=== PATIENT | male | born 1975 | race Caucasian/White ===

== ENCOUNTER 2016-10-07 13:46 | Day surgery (SDC) | payer BC ==
[~2016-10-07] VITALS: Ht 171.4 cm; Wt 108.6 kg
[2016-10-07] VITALS (7 sets, daily range): BP systolic 122–141; BP diastolic 59–76; PULSE 64–82; RESP 16–19; TEMP 97.6–98; O2SAT 94–98; Ht 171.4 cm; Wt 108.6 kg
[~2016-10-07 13:46] MED LIST: ERTAPENEM 1 G in NORMAL SALINE 100 ML IV ONE; LR 1,000 ML IV PRN
--- NOTE | 2016-10-07 14:49 | ANESPREOP ---
Anesthesia Record Date and Time DATE: 10/07/16 TIME: 14:46 Pre-Op Diagnosis perianal abscess Proposed Surgical Procedure EXCISION OF JESICA ANAL MASS Allergies: Coded Allergies: No Known Drug Allergies (Verified Allergy, Unknown, 10/07/16) Ht/Wt/BMI Height: 5 ' 7.50 " Weight: 108.600 kg BMI: 36.9 kg/m2 Vital Signs Date Time Temp Pulse Resp B/P Pulse Ox O2 Delivery O2 Flow Rate FiO2 10/07/16 14:00 98.0 82 16 131/76 94 Room Air Medications Inpatient Medications Current Medications Medications (Trade) Dose Ordered Sig/Adela Start Time Stop Time Status Last Admin Dose Admin Lactated Ringer's (Lactated Ringers) 1,000 ml @ 50 mls/hr Q20H PRN 10/07/16 07:00 10/07/16 14:17 50 MLS/HR No Active Prescriptions or Reported Meds Currently on Beta Alondra: No Medical/Surgical History Anesthesia PMH: Denies: *Angina, *Diabetes, *Hypertension, *DE, Anesthesia Reactions (NO AIRWAY ISSUES), Arthritis, Asthma, CHF, COPD, CVA/Stroke/TIA, Cancer, Clotting Problems, Glaucoma, Hiatal Hernia, Malignant Hyperthermia, Pneumonia, Reflux, Renal Disease, Seizures, Sleep Apnea, Thyroid Disease, Tuberculosis Smoking Status: Never smoker Has pt. smoked today?: No Use Chewing Tobacco?: No Second Hand Exposure: No Substance Use Type: does not use Alcohol Intake: none Past Surgical History Orthopedic Surgeries: Abdominal Surgeries: Genitourinary Surgeries: Cardiac Surgeries: Yes - CYSTOSCOPY Endocrine Surgeries: Reproductive Surgeries: Neurological Surgeries: Ear Surgeries: Nose Surgeries: Throat Surgeries: Other Surgeries: Anesthesia Adverse Reactions: FOUND none Family Hx of Anesthesia Advers: none Hx of Motion Sickness: No Pertinent Findings EKG Rhythm: Sinus Rhythm Physical Exam Respiratory: Lungs clear Cardiovascular: FOUND Regular rate, rhythm, FOUND No murmur Airway Assessment Mallampati Score: I TMD: 3 Fingerbreadths Neck Extension: Good Teeth: Chipped Teeth/Crowns Overall Assessment: No Airway Concerns ASA: 1 Plan Anesthesia Plan: TIVA Discussion Discussed risks/options/alternatives of anesthesia and questions answered. Patient consents. Nursing pain assessment noted. Present: Family Member Attestation Statement Prior to the delivery of any anesthetic medication, I examined the patient, developed the plan, obtained the patient's consent and discussed the risk and benefits of the procedure with the patient/guardian. ARCELIA HAWK I WEIGHT INSPECTOR Oct 07, 2016 14:49
[2016-10-07] MEDS ORDERED: PROPOFOL IV ONE (15:04)
[2016-10-07] MEDS ORDERED: FENTANYL 100mcg/2ml INJECTION ONE (15:06)
[2016-10-07] MEDS ORDERED: BUPIVACAINE 0.25%/EPI 1:200,000 30ml SDV ONE (15:26)
--- NOTE | 2016-10-07 16:09 | ANESPO ---
Post-Op Note Date 10/07/16 Time: 16:09 Status Pt Participated in Evaluation: Pt participated in person Vital Signs Date Time Temp Pulse Resp B/P Pulse Ox O2 Delivery O2 Flow Rate FiO2 10/07/16 14:00 98.0 82 16 131/76 94 Room Air Respiratory Function: Airway patent, Regular respirations Cardiovascular Function: Regular pulse Telemetry Pattern: SR Mental Status: Alert/oriented Pain Level Intensity: 0 Hydration: IV infusing Complications during Recovery None apparent Follow-Up Instructions Instructions Per Surgeon MERVAT CHEN CRNA Oct 07, 2016 16:09
[2016-10-07] MEDS ORDERED: HYDR-4246 PO (16:14)
[2016-10-07] MEDS ORDERED: HYDROCODONE/APAP 5 mg/325 mg TABLET PO ONE (16:45)
--- NOTE | 2016-10-07 16:50 | NUR ---
NORCO 5/325 PAIN MEDICATION WILL NOT SCAN. NORCO 5/325MG TABLETS X2 ADMINISTERED PO FOR PAIN.
--- NOTE | 2016-10-08 08:47 | OPNOTEF ---
DATE OF PROCEDURE 10/07/2016 SURGEON Dean Carrillo MD PREOPERATIVE DIAGNOSIS Perianal lesion/mass, abnormal CT scan revealing thickening within rectum. POSTOPERATIVE DIAGNOSIS Perianal lesion/mass, abnormal CT scan revealing thickening within rectum, intersphincteric [id number], polyp x 1 at 15 cm from the anal verge. PROCEDURE Colonoscopy with polypectomy via cold biopsy technique, partial fistulectomy with placement of a seton. ANESTHESIA TIVA/local BRIEF HISTORY/INDICATIONS Mr. Wiggins is a 41-year-old gentleman who presented to my office recently with the complaint of "lump" near the anal region. This "lump" had been present for about a year or more. He states that the "lump" had never opened or drained any type of material. He did state that it was somewhat tender and at times he will notice a little bit of blood on the toilet paper. Upon physical examination the patient was found to have a christa-like nodule upon the surface of the skin at the 12 o'clock position with 12 o'clock being posterior midline. This lesion did not have any evidence for drainage. The lesion was somewhat suspicious in its overall appearance. Palpation of this area did elicit discomfort to the patient. There did appear to be a component of firmness surrounding the area of concern. I did proceed with a CT scan for further evaluation of this perianal mass. CT scan did reveal some questionable thickening within the rectum. I recommended he undergo a colonoscopy as well as excision of this perianal lesion. Preoperatively I did not feel that this was going to be that of a [id number] given the lack of history of any type of drainage or abscess involving this area. Furthermore the surface of the lesion did not appear to be consistent with that of a chronic granulation tissue as one sometimes will see with chronic qhxbbdy-rd-nec disease. FINDINGS Upon colonoscopy the patient was not found have any evidence for angiodysplastic lesions, polyps or kim allergies. He was found have a single polyp at 15 cm from the anal verge that was on the order of about 5 mm in diameter which was removed in its entirety. During the process of excision of this perianal lesion, one could then see that there appeared to be a fistula tract extending from the lesion itself towards the anal canal. 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 A portion of the fistula was excised and a seton was placed surrounding the portion of the sphincteric mechanism that was incorporated into the fistula. DESCRIPTION OF PROCEDURE After informed consent was obtained patient, the patient was brought to the operative suite and placed on the table in a left lateral decubitus position. Formal time-out was then completed. Next, digital rectal examination was performed. Normal sphincter tone. No rectal masses were appreciated. An Olympus colonoscope was inserted in the anus and advanced with the lumen of the colon under direct vision at all times until the cecum was ascertained. Triangulation of taenia coli, ileocecal valve and appendiceal lumen were all visualized. Scope was then slowly withdrawn, again maintaining visualization of the lumen at all times. As stated above, the entire colon was without evidence for angiodysplastic lesions, diverticula or kim allergies. As the scope was being slowly withdrawn, a single polyp at 15 cm from the anal verge was identified. This polyp was on the order of about 5 mm in diameter. The polyp was grasped and removed in its entirety via cold biopsy technique. Colonoscope was then continued to be withdrawn till it was brought forth back to rectal vault. A J-maneuver was performed. No worrisome perianal pathology was noted. Scope was allowed to straighten and withdrawn through the anal verge. The buttocks were then somewhat taped apart as to provide exposure to the perianal region. Perianal region was then prepped and draped in sterile fashion. Attention was then focused towards this christa-like skin lesion with surrounding firmness at the 12 o'clock position about 4 cm from the anal verge. There was an additional small skin tag lesion also adjacent to this christa-like nodule. There did appear to be a component of some hypervascularity overlying this christa-like lesion. Next 0.25% Marcaine with epinephrine was injected around the area of concern. An elliptical incision was then made overlying the area of analgesia. The elliptical incision was made in such a fashion that it encompassed both this small skin tag and christa-like lesion. Dissection was then carried down to the deep subcuticular tissues. One could then see that there appeared to be a fistula tract extending towards the anal canal. I then focused my attention back to this christa-like nodule upon the surface of the skin. I used a fistula probe and began to probe the lesion and discovered that there was indeed a fistula tract beneath the christa-like nodule upon the surface of the skin. The fistula probe was then to be advanced into the fistula tract that had already been partially dissected out. Pavilion speculum was then placed within the anus and the fistula probe was able to be easily advanced into the anal canal. One could see the fistula probe as it entered into the anal canal along the columns of Morgagni. Next, attention was then focused back to the fistula tract. The anoderm overlying the fistula tract was carefully incised with cautery. One could then see the circular muscular muscle fibers of the external sphincteric mechanism overlying the fistula probe. These were not divided. The most distal portion of the fistula near the skin surface was then opened with cautery overlying the fistula probe about 2 cm proximal. A #1 silk was then tied to the fistula probe within the anal canal and the fistula probe was then brought forth out through the remaining portion of the fistula tract. The #2 silk was then doubled and tied upon itself resulting in the formation of a seton. The distal portion of the fistula tract that had already been excised circumferentially at this point in time was then excised and passed off the table as a surgical specimen. The portion of the fistula tract adjacent to the external sphincteric mechanism was left intact and incorporated into this cutting seton as discussed above. Hemostasis was obtained within the wound. I elected to place a couple of single interrupted sutures along the most distal apex of the incision to imbricate the wound edges. The majority of the wound was left open so that an abscess would not form. The patient is in the process of awakening from his anesthetic and will be sent back to the preop area once deemed in stable condition. ASHOK
== END 2016-10-07 17:20 | disposition home or self-care (01) ==
LOC: SCU 13:46
PROVIDERS: ATTEND Surgery
DX: K60.3 Anal fistula (principal); K63.5 Polyp of colon; K64.4 Residual hemorrhoidal skin tags
CPT/HCPCS: 45380; 46020; J2704; J3010; J7120; S0020